=== PATIENT | female | born 1945 | race Caucasian/White ===

== ENCOUNTER 2016-05-28 00:18 | Emergency (ER) | payer OTHER ==
[~2016-05-28] VITALS: Ht 154.9 cm; Wt 72.6 kg
[~2016-05-28 00:18] MED LIST: LEVO88TA5 PO; LISI10TA5 PO; LOVA20TA2 PO; SULF-261 PO; THYROID
[2016-05-28 00:35] VITALS: BP 151/85; PULSE 75; RESP 17; TEMP 98.2; O2SAT 97
[2016-05-28] MEDS ORDERED: NS 500 ML IV SCH (01:44)
[2016-05-28 02:48] LABS: BASOPHILS % (AUTO) 0.5 % (0.0-2.0); EOSINOPHILS # (AUTO) 0.2 K/uL (0.0-0.4); EOSINOPHILS % (AUTO) 2.2 % (0.0-4.0); HEMATOCRIT 40.4 % (36-48); HEMOGLOBIN 13.4 g/dL (12.0-16.0); LYMPHOCYTES # (AUTO) 1.7 K/uL (1.0-5.5); MEAN CORPUSCULAR HEMOGLOBIN 32 pg (27-31); MEAN CORPUSCULAR HGB CONC 33 % (32-36); MEAN CORPUSCULAR VOLUME 96 fL (79.0-98.0); MONOCYTES # (AUTO) 0.5 K/uL (0.0-1.0); MONOCYTES % (AUTO) 5.4 % (1.7-9.3); NEUTROPHILS # (AUTO) 6.7 K/uL (1.8-7.7); NEUTROPHILS % (AUTO) 72.9 % (40.0-70.0); PLATELET COUNT (AUTO) 264 K/uL (130-430); RED CELL DISTRIBUTION WIDTH 13.1 % (9.0-15.0); WHITE BLOOD COUNT (AUTO) 9.1 K/uL (4.8-10.8)
[2016-05-28 02:57] LABS: CALCIUM 9.5 mg/dL (8.4-11.0); CREATININE 0.81 mg/dL (0.55-1.30); POTASSIUM 3.6 mmol/L (3.5-5.1)
[2016-05-28 03:02] LABS: ALBUMIN 3.9 g/dL (3.4-4.8); TOTAL BILIRUBIN 0.3 mg/dL (0.0-1.0); TOTAL PROTEIN, SERUM 7.2 g/dL (6.4-8.3)
[2016-05-28 03:05] LABS: PROTHROMBIN TIME 10.4 SECS (9.5-12.5)
[2016-05-28] MEDS ORDERED: traMADol HCL HCL 50 MG TABLET (ULTRAM) PO ONE (04:30)
[2016-05-28 04:35] VITALS: BP 147/82; PULSE 74; RESP 18; TEMP 98.2; O2SAT 97
== END 2016-05-28 04:35 | disposition home or self-care (01) ==
LOC: SED 00:18
DX: K52.9 Noninfective gastroenteritis and colitis, unspecified (principal); K21.9 Gastro-esophageal reflux disease without esophagitis; I10 Essential (primary) hypertension; E78.00 Pure hypercholesterolemia, unspecified; Z86.79 Personal history of other diseases of the circulatory system
CPT/HCPCS: 36415; 80053; 85025; 85610-TC; 85730-TC; 99285

== ENCOUNTER 2016-08-28 07:32 | Emergency (ER) | payer OTHER ==
[~2016-08-28] VITALS: Ht 157.5 cm; Wt 63.5 kg
[~2016-08-28 07:32] MED LIST changes: -THYROID
[2016-08-28 07:49] VITALS: BP_SYST 167
[2016-08-28] MEDS: DEXAMETHASONE SOD PHOSPHATE 10 MG/ML VIAL IM ONE (09:20)
[2016-08-28] MEDS: KETOROLAC TROMETHAMINE 60 MG/2 ML VIAL IM ONE (09:20)
[2016-08-28 09:45] VITALS: BP_SYST 138
== END 2016-08-28 09:45 | disposition home or self-care (01) ==
LOC: SED 07:32
DX: H69.80 Other specified disorders of Eustachian tube, unspecified ear (principal); L30.9 Dermatitis, unspecified; I10 Essential (primary) hypertension; K21.9 Gastro-esophageal reflux disease without esophagitis; E78.00 Pure hypercholesterolemia, unspecified; Z86.79 Personal history of other diseases of the circulatory system
CPT/HCPCS: 96372; 99284; J1100; J1885

== ENCOUNTER 2017-07-27 01:06 | Emergency (ER) | payer OTHER ==
[~2017-07-27] VITALS: Ht 154.9 cm; Wt 63.5 kg
[2017-07-27 01:10] VITALS: BP_SYST 164
[2017-07-27] MEDS ORDERED: ASPIRIN 81 MG TAB.CHEW PO ONE (01:30)
[2017-07-27 01:42] LABS: BASOPHILS % (AUTO) 0.6 % (0.0-2.0); EOSINOPHILS # (AUTO) 0.2 K/uL (0.0-0.4); EOSINOPHILS % (AUTO) 3.3 % (0.0-4.0); HEMATOCRIT 39.8 % (36-48); HEMOGLOBIN 13.5 g/dL (12.0-16.0); LYMPHOCYTES % (AUTO) 43.3 % (20.5-51.5); MEAN CORPUSCULAR HEMOGLOBIN 33 pg (27-31); MEAN CORPUSCULAR HGB CONC 34 % (32-36); MEAN CORPUSCULAR VOLUME 96 fL (79.0-98.0); MONOCYTES # (AUTO) 0.5 K/uL (0.0-1.0); MONOCYTES % (AUTO) 8.2 % (1.7-9.3); NEUTROPHILS # (AUTO) 2.9 K/uL (1.8-7.7); NEUTROPHILS % (AUTO) 44.6 % (40.0-70.0); PLATELET COUNT (AUTO) 297 K/uL (130-430); RED BLOOD CELL COUNT(AUTO) 4.15 MIL/uL (4.2-6.2); RED CELL DISTRIBUTION WIDTH 13.3 % (9.0-15.0); WHITE BLOOD COUNT (AUTO) 6.6 K/uL (4.8-10.8)
[2017-07-27 01:48] LABS: ANION GAP 12 (5-15); CALCIUM 9.7 mg/dL (8.4-11.0); CHLORIDE 102 mmol/L (98-107); CREATININE 0.76 mg/dL (0.55-1.30); GLUCOSE 133 mg/dL (70-99); POTASSIUM 3.4 mmol/L (3.5-5.1); SODIUM SERUM 140 mmol/L (136-145); UREA NITROGEN, BLOOD 15 mg/dL (8-21)
[2017-07-27 01:52] LABS: PROTHROMBIN TIME 9.7 SECS (9.5-12.5)
[2017-07-27 02:03] LABS: ALANINE AMINOTRANSFERASE 48 U/L (12-78); ALBUMIN 3.8 g/dL (3.4-4.8); ASPARTATE AMINOTRANSFERASE 24 U/L (10-37); FREE T4 (FREE THYROXINE) 0.9 ng/dl (0.8-1.5); THYROID STIMULATING HORMONE 8.43 uIu/mL (0.36-3.74); TOTAL BILIRUBIN 0.3 mg/dL (0.0-1.0)
[2017-07-27 02:17] LABS: TRIGLYCERIDES 168 mg/dL (30-150)
[2017-07-27 02:18] LABS: CHOLESTEROL 218 mg/dL (<200); HDL CHOLESTEROL 42 mg/dL (>55); LDL CHOLESTEROL 161 mg/dL (<100)
[2017-07-27 04:20] VITALS: BP_SYST 136
== END 2017-07-27 04:20 | disposition home or self-care (01) ==
LOC: SED 01:06
DX: R00.2 Palpitations (principal); I10 Essential (primary) hypertension; E78.5 Hyperlipidemia, unspecified; E78.00 Pure hypercholesterolemia, unspecified; K21.9 Gastro-esophageal reflux disease without esophagitis; Z90.49 Acquired absence of other specified parts of digestive tract; Z90.710 Acquired absence of both cervix and uterus; Z86.79 Personal history of other diseases of the circulatory system
CPT/HCPCS: 36415; 71045; 71250-TC; 80053; 80061; 82550-TC; 83880; 84439; 84443-TC; 84484; 85025; 85610-TC; 85730-TC; 93005; 99285

== ENCOUNTER 2018-06-18 04:33 | Emergency (ER) | payer OTHER ==
[~2018-06-18] VITALS: Ht 152.4 cm; Wt 63.5 kg
[2018-06-18 05:05] VITALS: BP_SYST 148
[2018-06-18] MEDS ORDERED: METO25TA6 PO (05:17)
[2018-06-18] MEDS ORDERED: OMEP20CA10 PO (05:18)
[2018-06-18] MEDS ORDERED: SIMV20TA2 PO (05:18)
[2018-06-18] MEDS ORDERED: HYDR25TA4 PO (05:19)
[2018-06-18] MEDS ORDERED: CHOL500051 PO (05:20)
[2018-06-18] MEDS ORDERED: FEXO1TAB8 PO (05:20)
[2018-06-18] MEDS ORDERED: FLUT16SP16 NS (05:21)
[2018-06-18] MEDS ORDERED: MONT10TA25 PO (05:22)
[2018-06-18] MEDS ORDERED: KETO5DRO39 OP (05:23)
[2018-06-18] MEDS ORDERED: NACL 0.9% 1,000 ML IV ONE (06:00)
[2018-06-18 07:00] LABS: BILIRUBIN,URINE NEGATIVE (NEGATIVE); BLOOD, URINE 1+ (NEGATIVE); CLARITY/URINE CLEAR (CLEAR); COLOR,URINE YELLOW (YELLOW); GLUCOSE,URINE NEGATIVE (NEGATIVE); KETONES,URINE NEGATIVE (NEGATIVE); LEUKOCYTE ESTERASE ,URINE NEGATIVE (NEGATIVE); NITRITE, URINE NEGATIVE (NEGATIVE); PH,URINE 5.5 (5.0-8.0); PROTEIN URINE NEGATIVE (NEGATIVE); UROBILINOGEN,URINE 0.2 (0.2-1.0)
[2018-06-18 07:12] LABS: HEMATOCRIT 41.7 % (36-48); HEMOGLOBIN 14.2 g/dL (12.0-16.0); MEAN CORPUSCULAR HEMOGLOBIN 33 pg (27-31); MEAN CORPUSCULAR HGB CONC 34 % (32-36); MEAN CORPUSCULAR VOLUME 96 fL (79.0-98.0); NEUTROPHILS % (AUTO) 65.1 % (40.0-70.0); PLATELET COUNT (AUTO) 287 K/uL (130-430); RED BLOOD CELL COUNT(AUTO) 4.36 MIL/uL (4.2-6.2); RED CELL DISTRIBUTION WIDTH 12.9 % (9.0-15.0)
[2018-06-18 07:13] LABS: BASOPHILS % (AUTO) 0.5 % (0.0-2.0); EOSINOPHILS # (AUTO) 0.1 K/uL (0.0-0.4); EOSINOPHILS % (AUTO) 1.5 % (0.0-4.0); LYMPHOCYTES # (AUTO) 1.8 K/uL (1.0-5.5); LYMPHOCYTES % (AUTO) 25.8 % (20.5-51.5); MONOCYTES # (AUTO) 0.5 K/uL (0.0-1.0); MONOCYTES % (AUTO) 7.1 % (1.7-9.3); NEUTROPHILS # (AUTO) 4.6 K/uL (1.8-7.7)
[2018-06-18 07:16] LABS: INR 0.9 (0.8-1.2); PROTHROMBIN TIME 9.5 SECS (9.5-12.5)
[2018-06-18] MEDS ORDERED: MECLIZINE HCL 25 MG TABLET (ANITVERT) PO ONE (07:30)
[2018-06-18 07:31] LABS: ANION GAP 8 (5-15); CALCIUM 9.5 mg/dL (8.4-11.0); CHLORIDE 101 mmol/L (98-107); CREATININE 0.79 mg/dL (0.55-1.30); GLUCOSE 117 mg/dL (70-99); POTASSIUM 3.6 mmol/L (3.5-5.1); SODIUM SERUM 136 mmol/L (136-145); UREA NITROGEN, BLOOD 18 mg/dL (8-21)
[2018-06-18 07:38] LABS: ALANINE AMINOTRANSFERASE 40 U/L (12-78); ALBUMIN 3.8 g/dL (3.4-4.8); ASPARTATE AMINOTRANSFERASE 22 U/L (10-37); TOTAL BILIRUBIN 0.4 mg/dL (0.0-1.0)
[2018-06-18 08:34] LABS: BACTERIA,URINE FEW /HPF (None Seen); MUCUS,URINE None Seen /LPF (None Seen); WBC,URINE 0-3 /HPF (0-3); YEAST,URINE None Seen /HPF (None Seen)
[2018-06-18 09:08] VITALS: BP_SYST 136
== END 2018-06-18 09:08 | disposition home or self-care (01) ==
LOC: SED 04:33
DX: R51 Headache (principal); K21.9 Gastro-esophageal reflux disease without esophagitis; I10 Essential (primary) hypertension; E78.00 Pure hypercholesterolemia, unspecified; Z86.79 Personal history of other diseases of the circulatory system; Z90.710 Acquired absence of both cervix and uterus; Z79.899 Other long term (current) drug therapy
CPT/HCPCS: 36415; 70450; 71045; 80053; 84484; 81000; 85025; 85610; 93005; 96360; 99284; J7030; J8597

== ENCOUNTER 2018-10-08 06:23 | Emergency (ER) | payer OTHER ==
[~2018-10-08] VITALS: Ht 157.5 cm; Wt 63.5 kg
[~2018-10-08 06:23] MED LIST changes: +CHOL500051 PO; +FEXO1TAB8 PO; +FLUT16SP16 NS; +HYDR25TA4 PO; +KETO5DRO39 OP; -LISI10TA5 PO; -LOVA20TA2 PO; +METO25TA6 PO; +MONT10TA25 PO; +OMEP20CA10 PO; +SIMV20TA2 PO; -SULF-261 PO
[2018-10-08 06:28] VITALS: BP_SYST 141
--- NOTE | 2018-10-08 06:37 | NUR ---
Pt states that upon awakening at 0500 this AM she felt dizzy and room began to spin, lasting about 3 minutes. Pt assisted herself to her bed and laid down. Pt states that she got scared so she came to ER. Pt AAOx4 with c/o frontal H/A, denies LOC or falling or head injury, no focal neurodeficits, no N/V. Pt denies dizziness or spinning of room at this time. Pt states that she checked her B/P at home and SBP was 240, upon recheck SBP was 184. Upon arrival to ER B/P was 141/85. Pt denies c/o C/P or SOB.
--- NOTE | 2018-10-08 06:37 | NUR ---
Pt placed to ER bed 04, to gown. Report given to STEPHANIE Obrien.
--- NOTE | 2018-10-08 06:45 | NUR ---
Dr. Belcher at bedside to assess pt.
--- NOTE | 2018-10-08 07:09 | NUR ---
# 22 gauge angiocath placed to LEFT AC. Use of asceptic technique. Opsite placed over site. Blood return noted. Blood for lab drawn from site. Flushed with 10 cc of normal saline. No evidence of infiltration noted. Patient tolerated well.
[2018-10-08 07:10] LABS: BASOPHILS % (AUTO) 0.7 % (0.0-2.0); EOSINOPHILS # (AUTO) 0.2 K/uL (0.0-0.4); EOSINOPHILS % (AUTO) 3.2 % (0.0-4.0); HEMATOCRIT 41.1 % (36-48); HEMOGLOBIN 13.7 g/dL (12.0-16.0); LYMPHOCYTES # (AUTO) 1.9 K/uL (1.0-5.5); MEAN CORPUSCULAR HEMOGLOBIN 32 pg (27-31); MEAN CORPUSCULAR HGB CONC 33 % (32-36); MEAN CORPUSCULAR VOLUME 97 fL (79.0-98.0); MONOCYTES # (AUTO) 0.5 K/uL (0.0-1.0); MONOCYTES % (AUTO) 8.2 % (1.7-9.3); NEUTROPHILS # (AUTO) 3.9 K/uL (1.8-7.7); NEUTROPHILS % (AUTO) 58.9 % (40.0-70.0); PLATELET COUNT (AUTO) 286 K/uL (130-430); RED BLOOD CELL COUNT(AUTO) 4.26 MIL/uL (4.2-6.2); RED CELL DISTRIBUTION WIDTH 13.6 % (9.0-15.0); WHITE BLOOD COUNT (AUTO) 6.6 K/uL (4.8-10.8)
[2018-10-08 07:24] LABS: ANION GAP 10 (5-15); CALCIUM 10.1 mg/dL (8.4-11.0); CHLORIDE 101 mmol/L (98-107); CREATININE 0.77 mg/dL (0.55-1.30); GLUCOSE 136 mg/dL (70-99); POTASSIUM 3.5 mmol/L (3.5-5.1); SODIUM SERUM 136 mmol/L (136-145); UREA NITROGEN, BLOOD 17 mg/dL (8-21)
[2018-10-08 07:26] LABS: INR 0.9 (0.8-1.2); PROTHROMBIN TIME 9.3 SECS (9.5-12.5)
[2018-10-08 07:28] LABS: ALANINE AMINOTRANSFERASE 43 U/L (12-78); ALBUMIN 3.9 g/dL (3.4-4.8); ASPARTATE AMINOTRANSFERASE 21 U/L (10-37); TOTAL BILIRUBIN 0.4 mg/dL (0.0-1.0)
[2018-10-08 07:34] LABS: BILIRUBIN,URINE NEGATIVE (NEGATIVE); BLOOD, URINE 2+ (NEGATIVE); CLARITY/URINE CLEAR (CLEAR); COLOR,URINE YELLOW (YELLOW); GLUCOSE,URINE NEGATIVE (NEGATIVE); KETONES,URINE NEGATIVE (NEGATIVE); LEUKOCYTE ESTERASE ,URINE NEGATIVE (NEGATIVE); NITRITE, URINE NEGATIVE (NEGATIVE); PROTEIN URINE NEGATIVE (NEGATIVE); UROBILINOGEN,URINE 0.2 (0.2-1.0)
[2018-10-08 07:47] LABS: BACTERIA,URINE FEW /HPF (None Seen); WBC,URINE 0-3 /HPF (0-3)
--- NOTE | 2018-10-08 08:02 | NUR ---
Patient transported to radiology via gurney, accompanied by rad staff.
--- NOTE | 2018-10-08 08:03 | NUR ---
Returned from radiology, back to [facility].
--- NOTE | 2018-10-08 09:10 | NUR ---
Patient given written and verbal discharge instructions and verbalizes understanding. ER MD discussed with patient the results and treatment provided. Patient in stable condition. ID arm band removed. IV catheter removed intact and dressing applied, no active bleeding. No Rx given. Patient educated on pain management and to follow up with PMD. Pain Scale 3. Opportunity for questions provided and answered. Medication side effect fact sheet provided.
[2018-10-08] MEDS ORDERED: ACETAMINOPHEN 500 MG TABLET ONE (09:18)
[2018-10-08 09:31] VITALS: BP_SYST 113
== END 2018-10-08 09:31 | disposition home or self-care (01) ==
LOC: SED 06:23
DX: R42 Dizziness and giddiness (principal); I10 Essential (primary) hypertension; K21.9 Gastro-esophageal reflux disease without esophagitis; E78.00 Pure hypercholesterolemia, unspecified; Z86.79 Personal history of other diseases of the circulatory system; Z79.899 Other long term (current) drug therapy
CPT/HCPCS: 36415; 70450-TC; 71045; 80053; 81000-TC; 84484; 85025; 85610-TC; 85730-TC; 93005; 99284

== ENCOUNTER 2018-11-03 22:46 | Emergency (ER) | payer OTHER ==
[~2018-11-03] VITALS: Ht 157.5 cm; Wt 63.5 kg
[2018-11-03 22:59] VITALS: BP_SYST 139
--- NOTE | 2018-11-03 23:03 | NUR ---
Patient triaged and placed in waiting room. VSS and patient appears in no acute distress at this time. Accompanied by self, awaiting available bed, and MD notified of need for MSE.
--- NOTE | 2018-11-03 23:20 | NUR ---
Patient arrived from home with complaints of painful urination and blood in the urine. Denies any fever, n/v, chills or sob. Pain rated at 10/10 when urinating. Patient is ambulatory with a steady gait.
--- NOTE | 2018-11-03 23:21 | NUR ---
Patient to ER bed 4 to gown for evaluation. Side rails up. Report given to Micah BROWN.
[2018-11-04 00:41] LABS: BILIRUBIN,URINE NEGATIVE (NEGATIVE); BLOOD, URINE 3+ (NEGATIVE); CLARITY/URINE CLEAR (CLEAR); COLOR,URINE YELLOW (YELLOW); GLUCOSE,URINE NEGATIVE (NEGATIVE); KETONES,URINE NEGATIVE (NEGATIVE); LEUKOCYTE ESTERASE ,URINE 2+ (NEGATIVE); NITRITE, URINE NEGATIVE (NEGATIVE); PROTEIN URINE NEGATIVE (NEGATIVE); UROBILINOGEN,URINE 0.2 (0.2-1.0)
[2018-11-04 00:47] LABS: BACTERIA,URINE MODERATE /HPF (None Seen); RBC,URINE 20-50 /HPF (0-3); WBC,URINE >100 /HPF (0-3)
[2018-11-04] MEDS ORDERED: LEVOFLOXACIN 500 MG TABLET PO ONE (01:00)
[2018-11-04] MEDS ORDERED: PHENAZOPYRIDINE HCL 100 MG TABLET PO ONE (01:00)
--- NOTE | 2018-11-04 01:06 | NUR ---
Medication was given. Pt tolerated well. No adverse reaction, will continue to monitor.
[2018-11-04 01:28] VITALS: BP_SYST 133
--- NOTE | 2018-11-04 01:47 | NUR ---
Patient given written and verbal discharge instructions and verbalizes understanding. ER MD discussed with patient the results and treatment provided. Patient in stable condition. ID arm band removed. Rx of Pyridium and Levaquin given. Patient educated on pain management and to follow up with PMD. Pain Scale 0. Opportunity for questions provided and answered. Medication side effect fact sheet provided.
== END 2018-11-04 01:28 | disposition home or self-care (01) ==
LOC: SED 22:46
DX: N39.0 Urinary tract infection, site not specified (principal); K21.9 Gastro-esophageal reflux disease without esophagitis; I10 Essential (primary) hypertension; M79.7 Fibromyalgia; E78.00 Pure hypercholesterolemia, unspecified; Z86.79 Personal history of other diseases of the circulatory system; Z79.899 Other long term (current) drug therapy
CPT/HCPCS: 81000-TC; 87086; 99283

== ENCOUNTER 2019-04-29 01:30 | Emergency (ER) | payer OTHER ==
[~2019-04-29] VITALS: Ht 157.5 cm; Wt 63.0 kg
[~2019-04-29 01:30] MED LIST changes: -OMEP20CA10 PO; +OMEP20CA11 PO
[2019-04-29 01:50] VITALS: BP_SYST 148
--- NOTE | 2019-04-29 01:50 | NUR ---
Patient to ER bed 8 to gown for evaluation. Side rails up. Report given to STEPHANIE Lyons.
--- NOTE | 2019-04-29 01:55 | NUR ---
Patient complains of cough, fever, and chills since April 21. Pt states that she had recently came back from vacation from [place] and was seen and prescribed medications. Pt is currently taking Naprosyn, Tamiflu, and Loratidine. Per pt, cough intensifies when laying down. Afebrile in ED. Pt states she feels congested in the head especially after the plane ride and ears are muffled. No other injuries/complaints per patient or noted.
--- NOTE | 2019-04-29 02:00 | NUR ---
ER Dr. Gibbs at bedside examining patient.
--- NOTE | 2019-04-29 02:00 | NUR ---
Patient came into the ER with complaint of cough. Patient has cold like symptoms but afebrile. Patient O2 at 97%. Patient not presenting any signs of acute distress.
[2019-04-29] MEDS ORDERED: PREDNISONE 20 MG TABLET PO ONE (02:15)
--- NOTE | 2019-04-29 03:15 | NUR ---
Patient given written and verbal discharge instructions and verbalizes understanding. ER MD discussed with patient the results and treatment provided. Patient in stable condition. ID arm band removed. Rx of Cipro, Prednisone, Promethazine given. Patient educated on pain management and to follow up with PMD. Pain Scale 0/10. Opportunity for questions provided and answered. Medication side effect fact sheet provided.
[2019-04-29 03:18] VITALS: BP_SYST 148
== END 2019-04-29 03:18 | disposition home or self-care (01) ==
LOC: SED 01:30
DX: N39.0 Urinary tract infection, site not specified (principal); J20.9 Acute bronchitis, unspecified; I10 Essential (primary) hypertension; E07.9 Disorder of thyroid, unspecified; Z79.899 Other long term (current) drug therapy
CPT/HCPCS: 71045; 81002; 99283; J7512

== ENCOUNTER 2019-07-21 02:16 | Emergency (ER) | payer OTHER, SELFPAY ==
[~2019-07-21] VITALS: Ht 157.5 cm; Wt 63.5 kg
[2019-07-21 02:28] VITALS: BP_SYST 168
--- NOTE | 2019-07-21 02:36 | NUR ---
Patient triaged and placed in waiting room. VSS and patient appears in no acute distress at this time. Accompanied by self, awaiting available bed, and MD notified of need for MSE.
--- NOTE | 2019-07-21 02:42 | NUR ---
Placed in room 06 . Placed on panel monitor, blood pressure machine and pulse oximeter. To gown for exam. Side rails up. Report given to Joaquin BROWN.
--- NOTE | 2019-07-21 02:48 | NUR ---
ER Dr. Gibbs at bedside examining patient.
--- NOTE | 2019-07-21 02:59 | NUR ---
Pt BIB family to ED C/O one-week history of cough congestion and intermittent episodes of dizzy spells. Patient also complained of ear fullness sensation. Currently taken medications that were phoned in by her primary doctor including meclizine and antibiotics and an antitussive medication. [place] And has been observing self-isolation with only intermittent interaction with her senior inhabitants. Patient states she has had no external visitors. No other complaints noted VSS no s/s of acute distress Resting on gurCaptora rails up
[2019-07-21] MEDS ORDERED: NACL 0.9% 1,000 ML IV ONE ×2 (03:00→04:00)
--- NOTE | 2019-07-21 03:23 | NUR ---
x-ray at bedside.
[2019-07-21 03:24] LABS: BASOPHILS # (AUTO) 0.1 K/uL (0.0-0.2); BASOPHILS % (AUTO) 1.2 % (0.0-2.0); EOSINOPHILS # (AUTO) 0.2 K/uL (0.0-0.4); EOSINOPHILS % (AUTO) 2.6 % (0.0-4.0); HEMATOCRIT 40.3 % (36-48); HEMOGLOBIN 13.5 g/dL (12.0-16.0); LYMPHOCYTES # (AUTO) 2.7 K/uL (1.0-5.5); LYMPHOCYTES % (AUTO) 35.9 % (20.5-51.5); MEAN CORPUSCULAR HEMOGLOBIN 32 pg (27-31); MEAN CORPUSCULAR HGB CONC 33 % (32-36); MEAN CORPUSCULAR VOLUME 96 fL (79.0-98.0); MONOCYTES # (AUTO) 0.5 K/uL (0.0-1.0); MONOCYTES % (AUTO) 6.5 % (1.7-9.3); NEUTROPHILS % (AUTO) 53.8 % (40.0-70.0); PLATELET COUNT (AUTO) 295 K/uL (130-430); RED BLOOD CELL COUNT(AUTO) 4.18 MIL/uL (4.2-6.2); RED CELL DISTRIBUTION WIDTH 14.5 % (9.0-15.0); WHITE BLOOD COUNT (AUTO) 7.5 K/uL (4.8-10.8)
--- NOTE | 2019-07-21 03:30 | NUR ---
Note undone in EDM - 07/21/19 at 0335 by [email or web address] Patient given written and verbal discharge instructions and verbalizes understanding. ER discussed with patient the results and treatment provided. Patient in stable condition. ID arm band removed. IV catheter removed intact and dressing applied, no active bleeding. Rx of Zofran and Motrin given. Patient educated on pain management and to follow up with PMD. Pain Scale 0/10 Opportunity for questions provided and answered. Medication side effect fact sheet provided.
[2019-07-21 03:34] LABS: ANION GAP 13 (5-15); CALCIUM 9.6 mg/dL (8.4-11.0); CHLORIDE 100 mmol/L (98-107); CREATININE 0.77 mg/dL (0.55-1.30); GLUCOSE 125 mg/dL (70-99); POTASSIUM 4.2 mmol/L (3.5-5.1); SODIUM SERUM 138 mmol/L (136-145); UREA NITROGEN, BLOOD 12 mg/dL (8-21)
[2019-07-21 03:40] LABS: ALANINE AMINOTRANSFERASE 42 U/L (12-78); ALBUMIN 3.5 g/dL (3.4-4.8); ASPARTATE AMINOTRANSFERASE 39 U/L (10-37); TOTAL BILIRUBIN 0.5 mg/dL (0.0-1.0)
--- NOTE | 2019-07-21 05:00 | NUR ---
Flu swab sent to lab for processing and 2nd Lactic lab sent as well
--- NOTE | 2019-07-21 06:00 | NUR ---
Obtained Bilat Nasal swab sample per COVID19 protocol, swab and red top container provided by lab. Well tolerated
[2019-07-21 06:32] VITALS: BP_SYST 138
--- NOTE | 2019-07-21 06:32 | NUR ---
Patient given written and verbal discharge instructions and verbalizes understanding. ER MD discussed with patient the results and treatment provided. Patient in stable condition. ID arm band removed. Rx of Azithromycin, Promethazine DM, Prednisone given. Patient educated on pain management and to follow up with PMD. Pain Scale 2/10. Opportunity for questions provided and answered. Medication side effect fact sheet provided.
== END 2019-07-21 06:32 | disposition home or self-care (01) ==
LOC: SED 02:16
DX: J40 Bronchitis, not specified as acute or chronic (principal); N28.9 Disorder of kidney and ureter, unspecified; I10 Essential (primary) hypertension; E78.00 Pure hypercholesterolemia, unspecified; K21.9 Gastro-esophageal reflux disease without esophagitis; E07.9 Disorder of thyroid, unspecified; R42 Dizziness and giddiness; Z95.0 Presence of cardiac pacemaker; Z86.73 Personal history of transient ischemic attack (TIA), and cerebral infarction without residual deficits; Z79.899 Other long term (current) drug therapy; Z20.828 Contact with and (suspected) exposure to other viral communicable diseases
CPT/HCPCS: 36415; 71045; 80053; 81002; 83605; 84484; 85025; 86710; 87040; 93005; 96360; 96361; 99285; J7030; U0002

== ENCOUNTER 2020-09-26 00:34 | Emergency (ER) | payer OTHER, SELFPAY ==
[~2020-09-26] VITALS: Ht 154.9 cm; Wt 63.5 kg
[~2020-09-26 00:34] MED LIST changes: -MONT10TA25 PO; +MONT10TA33 PO; -OMEP20CA11 PO; +OMEP20CA15 PO
[2020-09-26 00:50] VITALS: BP_SYST 128
[2020-09-26 00:59] LABS: BILIRUBIN,URINE NEGATIVE (NEGATIVE); BLOOD, URINE 3+ (NEGATIVE); CLARITY/URINE CLEAR (CLEAR); COLOR,URINE YELLOW (YELLOW); GLUCOSE,URINE NEGATIVE (NEGATIVE); KETONES,URINE NEGATIVE (NEGATIVE); LEUKOCYTE ESTERASE ,URINE 2+ (NEGATIVE); NITRITE, URINE POSITIVE (NEGATIVE); PROTEIN URINE NEGATIVE (NEGATIVE); UROBILINOGEN,URINE 0.2 (0.2-1.0)
[2020-09-26 01:07] LABS: BACTERIA,URINE FEW /HPF (None Seen); WBC,URINE 20-50 /HPF (0-3)
[2020-09-26] MEDS ORDERED: cefTRIAXone 1 GM in LIDOCAINE 1%, 20 ML MDV 2.1 ML IM ONE (02:45)
[2020-09-26] MEDS ORDERED: PHENAZOPYRIDINE HCL 100 MG TABLET PO ONE (02:45)
[2020-09-26] MEDS ORDERED: CEPH250C PO (03:07)
[2020-09-26] MEDS ORDERED: PHEN-890 PO (03:08)
[2020-09-26 03:16] VITALS: BP_SYST 128
== END 2020-09-26 03:16 | disposition home or self-care (01) ==
LOC: SED 00:34
DX: N39.0 Urinary tract infection, site not specified (principal); I10 Essential (primary) hypertension; K21.9 Gastro-esophageal reflux disease without esophagitis; Z79.899 Other long term (current) drug therapy
CPT/HCPCS: 81000; 87086; 96372; 99283; J0696; J2001

== ENCOUNTER 2021-10-07 05:08 | Emergency (ER) | payer OTHER ==
[~2021-10-07] VITALS: Ht 157.5 cm; Wt 63.5 kg
[~2021-10-07 05:08] MED LIST changes: +CEPH250C PO; +MONT-40 PO; -MONT10TA33 PO; +PHEN-890 PO
[2021-10-07 05:15] VITALS: BP_SYST 116
--- NOTE | 2021-10-07 05:17 | NUR ---
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 PER PT SHE TOOK 25 MG OF BENEDRYL WITH NO RELIEF. PT STATES SHE STARTED TAKING A NEW MEDICTAION WHICH MAY HAVE RESULTED IN THE ALLERGIC REACTION. PT NOTED TO HAVE REDNESS AND RAISED SKIN IN VARIOUS AREAS OF HER BODY SUCH FACE, CHEST, ARMS AND STOMACH. PT DENIES ANY SOB OR PAIN. PT PENDING MD EVALUATION
--- NOTE | 2021-10-07 06:10 | NUR ---
ER at bedside examining patient.
[2021-10-07] MEDS ORDERED: EPINEPHRINE HCL/PF 1 MG/ML AMP IM ONE (06:15)
[2021-10-07] MEDS ORDERED: FAMOTIDINE 20 MG TABLET PO ONE (06:15)
[2021-10-07] MEDS ORDERED: predniSONE 20 MG TABLET PO ONE (06:15)
[2021-10-07] MEDS ORDERED: EPIN0.3P3 IM (07:17)
--- NOTE | 2021-10-07 07:38 | NUR ---
Patient given written and verbal discharge instructions and verbalizes understanding. ER MD discussed with patient the results and treatment provided. Patient in stable condition. ID arm band removed. Rx of epinephrine given. Patient educated on pain management and to follow up with PMD. Pain Scale . Opportunity for questions provided and answered. Medication side effect fact sheet provided.
[2021-10-07 07:47] VITALS: BP_SYST 122
== END 2021-10-07 07:38 | disposition home or self-care (01) ==
LOC: SED 05:08
DX: L23.9 Allergic contact dermatitis, unspecified cause (principal); I10 Essential (primary) hypertension; K21.9 Gastro-esophageal reflux disease without esophagitis; E78.00 Pure hypercholesterolemia, unspecified; M79.7 Fibromyalgia; Z79.899 Other long term (current) drug therapy
CPT/HCPCS: 96372; 99283; J0171; J7512

== ENCOUNTER 2021-10-09 03:30 | Emergency (ER) | payer OTHER ==
[~2021-10-09] VITALS: Ht 157.5 cm; Wt 63.5 kg
[~2021-10-09 03:30] MED LIST changes: +EPIN0.3P3 IM
[2021-10-09 04:30] VITALS: BP_SYST 126
--- NOTE | 2021-10-09 05:30 | NUR ---
Patient ambulatory to bed 7 for evaluation and treatment
--- NOTE | 2021-10-09 05:48 | NUR ---
Dr. Webb at bedside with patient for evaluation.
--- NOTE | 2021-10-09 05:48 | NUR ---
Pt comes from home with c/o skin rash on both arms. Risen bumps noted on both arms. Pt reports having the rash for 3 days and reports that it gets worse with itching. A&O x4, ambulatory, and follows simple commands. Safety precautions in place and connected to monitor.
[2021-10-09] MEDS ORDERED: FAMOTIDINE 20 MG TABLET PO ONE (06:00)
[2021-10-09] MEDS ORDERED: predniSONE 20 MG TABLET PO ONE (06:00)
[2021-10-09] MEDS ORDERED: predniSONE 20 MG TABLET ONE (06:06)
[2021-10-09] MEDS ORDERED: FAMO-132 PO (06:20)
[2021-10-09] MEDS ORDERED: CETI10CA20 PO (06:20)
[2021-10-09] MEDS ORDERED: PRED20TA PO (06:20)
[2021-10-09 06:35] VITALS: BP_SYST 118
--- NOTE | 2021-10-09 06:35 | NUR ---
Patient given written and verbal discharge instructions and verbalizes understanding. ER Dr. Webb discussed with patient the results and treatment provided. Patient in stable condition. ID arm band removed. Rx of cetirizine, pepcid, and prednisone given. Patient educated on pain management and to follow up with PMD. Pain Scale 0. Opportunity for questions provided and answered. Medication side effect fact sheet provided.
== END 2021-10-09 06:35 | disposition home or self-care (01) ==
LOC: SED 03:30
DX: L23.9 Allergic contact dermatitis, unspecified cause (principal); I10 Essential (primary) hypertension; K21.9 Gastro-esophageal reflux disease without esophagitis; Z79.899 Other long term (current) drug therapy
CPT/HCPCS: 99283; J7512

== ENCOUNTER 2021-12-14 00:08 | Emergency (ER) | payer OTHER ==
[~2021-12-14] VITALS: Ht 157.5 cm; Wt 63.5 kg
[~2021-12-14 00:08] MED LIST changes: +CETI10CA20 PO; +FAMO-132 PO; +PRED20TA PO; +SIMV-343 PO; -SIMV20TA2 PO
[2021-12-14 00:30] VITALS: BP_SYST 149
--- NOTE | 2021-12-14 00:30 | NUR ---
Patient to ER bed 08 to gown for evaluation. Side rails up.
--- NOTE | 2021-12-14 00:36 | NUR ---
PT CAME FROM HOME WITH C/O OF CONGESTION, SORE THROAT, RUNNY NOSE, AND WATSON FOR 3 DAYS. PT DENIES N/V AND CHEST PAIN. PT SPEAKING IN FULL SENTENCES, EVEN AND UNLABORED BREATHS, AND VSS.
--- NOTE | 2021-12-14 00:38 | NUR ---
ER at bedside examining patient.
--- NOTE | 2021-12-14 00:53 | NUR ---
PT C/O RUNNING NOSE, COUGH AND HEADACHE X 3 DAYS. PT AMBULATORY WITH STEADY GAIT. PT SPEAKING FULL SENTENCES. NO SIGNS OF DISTRESS AT THIS TIME PT ON TANK HOOP BENDER
--- NOTE | 2021-12-14 01:10 | NUR ---
COVID SWAB IN LAB
[2021-12-14] MEDS ORDERED: PHEDM120 PO (03:51)
[2021-12-14] MEDS ORDERED: FLUT16SP16 NS (03:51)
[2021-12-14] MEDS ORDERED: ACETAMINOPHEN 500 MG TABLET ONE (04:08)
[2021-12-14 04:12] VITALS: BP_SYST 116
--- NOTE | 2021-12-14 04:14 | NUR ---
PT STABLE AND CLEARED FOR DC BY PT ADVISED TO FOLLOW UP WITH PCP PT ADVISED TO RETURN TO THE ED IF S/S WORSEN PT VERBALIZED UNDERSTANDING OF DC TEACHINGS PT AMBULATORY WITH STEADY GAIT VSS NAD
[2021-12-14] MEDS ORDERED: ACETAMINOPHEN 500 MG TABLET PO ONE (04:15)
== END 2021-12-14 04:12 | disposition home or self-care (01) ==
LOC: SED 00:08
DX: J06.9 Acute upper respiratory infection, unspecified (principal); J02.9 Acute pharyngitis, unspecified; R05.9 Cough, unspecified; R09.81 Nasal congestion; I10 Essential (primary) hypertension; K21.9 Gastro-esophageal reflux disease without esophagitis; E78.00 Pure hypercholesterolemia, unspecified; Z79.899 Other long term (current) drug therapy; Z20.822 Contact with and (suspected) exposure to COVID-19
CPT/HCPCS: 36415; 71045; 99284

== ENCOUNTER 2022-06-03 11:06 | Emergency (ER) | payer OTHER ==
[~2022-06-03] VITALS: Ht 157.5 cm; Wt 63.5 kg
[~2022-06-03 11:06] MED LIST changes: +PHEDM120 PO
[2022-06-03 11:37] VITALS: BP_SYST 156
[2022-06-03] MEDS ORDERED: ACETAMINOPHEN 325 MG TABLET PO ONE (18:45)
[2022-06-03] MEDS ORDERED: IBUPROFEN 600 MG TABLET PO ONE (18:45)
--- NOTE | 2022-06-03 19:46 | NUR ---
Patient to [facility] for evaluation. Side rails up. Report given to AVERY BROWN(REG).
--- NOTE | 2022-06-03 19:48 | NUR ---
MD Chapman at bedside examining pt.
--- NOTE | 2022-06-03 19:50 | NUR ---
Pt medicated as ordered; tolerated well.
[2022-06-03 20:05] VITALS: BP_SYST 147
--- NOTE | 2022-06-03 20:05 | NUR ---
Patient given written and verbal discharge instructions and verbalizes understanding. ER MD Chapman discussed with patient the results and treatment provided. Patient in stable condition. ID arm band removed. Patient educated on pain management and to follow up with PMD. Opportunity for questions provided and answered. Medication side effect fact sheet provided.
== END 2022-06-03 20:05 | disposition home or self-care (01) ==
LOC: SED 11:06
DX: R51.9 Headache, unspecified (principal); H92.03 Otalgia, bilateral; E11.9 Type 2 diabetes mellitus without complications; K21.9 Gastro-esophageal reflux disease without esophagitis; I10 Essential (primary) hypertension; E78.00 Pure hypercholesterolemia, unspecified; Z79.899 Other long term (current) drug therapy
CPT/HCPCS: 70450-TC; 76376; 99284

== ENCOUNTER 2023-08-21 18:01 | Emergency (ER) | payer OTHER ==
[~2023-08-21] VITALS: Ht 154.9 cm; Wt 68.0 kg
[~2023-08-21 18:01] MED LIST changes: +KETO5DRO OP; -KETO5DRO39 OP
[2023-08-21 18:13] VITALS: BP_SYST 139; PULSE 62; RESP 18; TEMP 98.5; O2SAT 98
[2023-08-21] MEDS ORDERED: FLOEARD EACH EYE (19:10)
[2023-08-21] MEDS ORDERED: HYDR-3917 PO (19:10)
[2023-08-21] MEDS: HYDROcodone/ACETAMIN 5-325 MG TAB (NORCO/ VICODIN) PO ONE (19:48)
[2023-08-21 20:00] VITALS: BP_SYST 139; PULSE 62; RESP 18; TEMP 98.5; O2SAT 98
== END 2023-08-21 20:00 | disposition home or self-care (01) ==
LOC: SED 18:01
DX: T15.82XA Foreign body in other and multiple parts of external eye, left eye, initial encounter (principal); K21.9 Gastro-esophageal reflux disease without esophagitis; I10 Essential (primary) hypertension; E11.9 Type 2 diabetes mellitus without complications; Z98.42 Cataract extraction status, left eye; Z79.899 Other long term (current) drug therapy; W45.8XXA Other foreign body or object entering through skin, initial encounter; Y93.89 Activity, other specified; Y92.89 Other specified places as the place of occurrence of the external cause; Y99.8 Other external cause status
CPT/HCPCS: 99283; 96374; J1120

== ENCOUNTER 2023-10-14 06:16 | Observation (INO) | payer OTHER ==
[~2023-10-14] VITALS: Ht 157.5 cm; Wt 63.5 kg
[~2023-10-14 06:16] MED LIST changes: +FLOEARD EACH EYE; +HYDR-3917 PO
[2023-10-14 06:28] VITALS: BP_SYST 152; PULSE 81; RESP 16; TEMP 97.6; O2SAT 97
[2023-10-14 07:17] LABS: BASOPHILS # (AUTO) 0.1 K/uL (0.0-0.2); EOSINOPHILS # (AUTO) 0.3 K/uL (0.0-0.4); EOSINOPHILS % (AUTO) 3.8 % (0.0-4.0); HEMATOCRIT 40.3 % (36-48); HEMOGLOBIN 13.4 g/dL (12.0-16.0); LYMPHOCYTES # (AUTO) 2.3 K/uL (1.0-5.5); LYMPHOCYTES % (AUTO) 30.9 % (20.5-51.5); MEAN CORPUSCULAR HEMOGLOBIN 32 pg (27-31); MEAN CORPUSCULAR HGB CONC 33 % (32-36); MEAN CORPUSCULAR VOLUME 96 fL (79.0-98.0); MONOCYTES # (AUTO) 0.6 K/uL (0.0-1.0); MONOCYTES % (AUTO) 8.5 % (1.7-9.3); NEUTROPHILS # (AUTO) 4.1 K/uL (1.8-7.7); NEUTROPHILS % (AUTO) 55.8 % (40.0-70.0); PLATELET COUNT (AUTO) 261 K/uL (130-430); RED BLOOD CELL COUNT(AUTO) 4.19 MIL/uL (4.2-6.2); RED CELL DISTRIBUTION WIDTH 13.9 % (9.0-15.0); WHITE BLOOD COUNT (AUTO) 7.4 K/uL (4.8-10.8)
[2023-10-14 07:29] LABS: PROTHROMBIN TIME 10.2 SECS (9.5-12.5)
[2023-10-14 07:31] LABS: ALANINE AMINOTRANSFERASE 86 U/L (12-78); ALBUMIN 3.6 g/dL (3.4-4.8); ANION GAP 7 (5-15); ASPARTATE AMINOTRANSFERASE 41 U/L (10-37); CARBON DIOXIDE 26 mmol/L (23-29); CHLORIDE 105 mmol/L (98-107); CREATININE 0.81 mg/dL (0.55-1.30); GLUCOSE 136 mg/dL (74-106); POTASSIUM 3.8 mmol/L (3.5-5.1); SODIUM SERUM 138 mmol/L (136-145); TOTAL BILIRUBIN 0.4 mg/dL (0.0-1.0); TOTAL PROTEIN, SERUM 7.3 g/dL (6.4-8.3); UREA NITROGEN, BLOOD 9 mg/dL (8-21)
[2023-10-14] MEDS: METOCLOPRAMIDE HCL 10 MG/2 ML VIAL IVP ONE (07:31)
[2023-10-14] MEDS: MECLIZINE HCL 25 MG TABLET (ANITVERT) PO ONE (07:33)
[2023-10-14 07:34] LABS: BILIRUBIN,DIRECT 0.1 mg/dL (0.0-0.3); CREATINE KINASE, TOTAL 107 U/L (26-192)
[2023-10-14] MEDS: ASPIRIN 81 MG TABLET(ECOTRIN) PO ONE (08:21)
[2023-10-14] MEDS ORDERED: METO-306 PO (08:26)
[2023-10-14] MEDS ORDERED: HYDR-2923 PO (08:26)
[2023-10-14] MEDS ORDERED: PANT40TA45 PO (08:26)
[2023-10-14] MEDS ORDERED: LEVO75TA7 PO (08:26)
[2023-10-14] MEDS ORDERED: FURO20TA4 (08:26)
[2023-10-14] MEDS ORDERED: ATOR40TA68 (08:26)
[2023-10-14] MEDS ORDERED: ONDANSETRON HCL 4 MG/2 ML VIAL IVP PRN (10:30)
[2023-10-14] MEDS ORDERED: MORPHINE 2 MG/ML INJ. SYRINGE IVP PRN (10:30)
[2023-10-14] MEDS ORDERED: ACETAMINOPHEN 325 MG TABLET PO PRN ×2 (10:30→10:45)
[2023-10-14] MEDS ORDERED: ALBUTEROL SULFATE 0.083% 2.5 MG/3 ML VIAL.NEB INH PRN (10:30)
[2023-10-14] MEDS ORDERED: HYDROcodone/ACETAMIN 10-325 MG TAB PO PRN (10:30)
[2023-10-14] MEDS ORDERED: HYDROcodone/ACETAMIN 5-325 MG TAB (NORCO/ VICODIN) PO PRN (10:30)
[2023-10-14] MEDS: NACL 0.9% 1,000 ML IV ONE (10:54)
[2023-10-14 11:36] VITALS: BP_SYST 132; PULSE 56; RESP 16; TEMP 97.5; O2SAT 98
[2023-10-14 12:09] VITALS: BP_SYST 136; PULSE 61; O2SAT 98
[2023-10-14 16:20] VITALS: BP_SYST 134; PULSE 62; RESP 16; TEMP 99.1; O2SAT 98
[2023-10-14 17:31] LABS: BILIRUBIN,URINE NEGATIVE (NEGATIVE); CLARITY/URINE CLEAR (CLEAR); COLOR,URINE YELLOW (YELLOW); GLUCOSE,URINE NEGATIVE (NEGATIVE); KETONES,URINE NEGATIVE (NEGATIVE); LEUKOCYTE ESTERASE ,URINE NEGATIVE (NEGATIVE); NITRITE, URINE NEGATIVE (NEGATIVE); PROTEIN URINE NEGATIVE (NEGATIVE); UROBILINOGEN,URINE 0.2 (0.2-1.0)
[2023-10-14 17:32] LABS: BLOOD, URINE TRACE (NEGATIVE)
[2023-10-14 17:37] LABS: BACTERIA,URINE RARE /HPF (None Seen); MUCUS,URINE None Seen /LPF (None Seen); RBC,URINE 0-3 /HPF (0-3); WBC,URINE 0-3 /HPF (0-3)
[2023-10-14 20:00] VITALS: BP_SYST 123; PULSE 58; RESP 20; TEMP 97.2; O2SAT 96; O2SAT 97
[2023-10-14] MEDS: MECLIZINE HCL 25 MG TABLET (ANITVERT) PO SCH (21:46)
[2023-10-15 00:11] VITALS: RESP 20; TEMP 97
[2023-10-15 06:40] LABS: BASOPHILS % (AUTO) 0.7 % (0.0-2.0); EOSINOPHILS # (AUTO) 0.3 K/uL (0.0-0.4); EOSINOPHILS % (AUTO) 4.2 % (0.0-4.0); HEMATOCRIT 40.3 % (36-48); HEMOGLOBIN 13.7 g/dL (12.0-16.0); LYMPHOCYTES # (AUTO) 2.3 K/uL (1.0-5.5); LYMPHOCYTES % (AUTO) 35.8 % (20.5-51.5); MEAN CORPUSCULAR HEMOGLOBIN 32 pg (27-31); MEAN CORPUSCULAR HGB CONC 34 % (32-36); MEAN CORPUSCULAR VOLUME 95 fL (79.0-98.0); MONOCYTES # (AUTO) 0.5 K/uL (0.0-1.0); MONOCYTES % (AUTO) 7.1 % (1.7-9.3); NEUTROPHILS # (AUTO) 3.4 K/uL (1.8-7.7); NEUTROPHILS % (AUTO) 52.2 % (40.0-70.0); PLATELET COUNT (AUTO) 266 K/uL (130-430); RED BLOOD CELL COUNT(AUTO) 4.22 MIL/uL (4.2-6.2); WHITE BLOOD COUNT (AUTO) 6.5 K/uL (4.8-10.8)
[2023-10-15 07:03] LABS: ALANINE AMINOTRANSFERASE 87 U/L (12-78); ALBUMIN 3.4 g/dL (3.4-4.8); ANION GAP 6 (5-15); ASPARTATE AMINOTRANSFERASE 43 U/L (10-37); CALCIUM 9.2 mg/dL (8.4-11.0); CARBON DIOXIDE 28 mmol/L (23-29); CHLORIDE 107 mmol/L (98-107); CREATININE 0.74 mg/dL (0.55-1.30); GLUCOSE 106 mg/dL (74-106); POTASSIUM 4.1 mmol/L (3.5-5.1); SODIUM SERUM 141 mmol/L (136-145); TOTAL BILIRUBIN 0.5 mg/dL (0.0-1.0); UREA NITROGEN, BLOOD 10 mg/dL (8-21)
[2023-10-15 08:13] VITALS: O2SAT 97
[2023-10-15 08:21] VITALS: BP_SYST 133; PULSE 72; RESP 16; TEMP 97.4; O2SAT 97
[2023-10-15 12:00] VITALS: BP_SYST 131; PULSE 74; RESP 17; TEMP 98.2; O2SAT 96
[2023-10-15] MEDS: LEVOTHYROXINE SODIUM 0.075 MG TABLET PO SCH (12:10)
[2023-10-15] MEDS: ATORVASTATIN 20 MG TABLET PO SCH (12:10)
[2023-10-15] MEDS: HYDROCHLOROTHIAZIDE 25 MG TABLET (HCTZ) PO SCH (12:11)
[2023-10-15] MEDS: METOPROLOL SUCCINATE 50 MG TAB.SR.24H (TOPROL XL) PO SCH (12:11)
[2023-10-15] MEDS ORDERED: MECL-292 PO (13:50)
[2023-10-15 14:45] VITALS: BP_SYST 132; PULSE 63; RESP 18; TEMP 98.7; O2SAT 98
[2023-10-15 16:00] VITALS: BP_SYST 134; PULSE 63; RESP 16; TEMP 98.3; O2SAT 97
[2023-10-17 06:07] LABS: HEPATITIS A AB, IgM Negative (Negative); HEPATITIS B CORE AB, IgM Negative (Negative); HEPATITIS B SURFACE AG Negative (Negative); HEPATITIS C VIRUS AB Non Reactive (Non Reactive)
== END 2023-10-15 18:30 | disposition home or self-care (01) ==
LOC: SED 06:16 → STU 10:29
PROVIDERS: ADMIT Family Medicine; ATTEND Family Medicine
DX: R42 Dizziness and giddiness (principal); R11.0 Nausea; E11.65 Type 2 diabetes mellitus with hyperglycemia; E78.5 Hyperlipidemia, unspecified; I10 Essential (primary) hypertension; K21.9 Gastro-esophageal reflux disease without esophagitis; K76.0 Fatty (change of) liver, not elsewhere classified; M79.7 Fibromyalgia; R74.01 Elevation of levels of liver transaminase levels; Z79.899 Other long term (current) drug therapy
CPT/HCPCS: 80076; 80048; 81000; 81001; 82550; 85025 ×2; 85610; 85730; 84484; 36415 ×2; 93005; 71045; 70450; 93880; 97530; 97116; 97163; 99285; 96361; 96374; 82948; 80074; 80053; 83037; 76705; J2765; G0378 ×2; 81015; J8597

== ENCOUNTER 2023-12-31 10:59 | Emergency (ER) | payer OTHER ==
[~2023-12-31] VITALS: Ht 157.5 cm; Wt 68.0 kg
[~2023-12-31 10:59] MED LIST changes: +ATOR40TA68; -CEPH250C PO; +LEVO75TA7 PO; -LEVO88TA5 PO; +MECL-292 PO; +METO-306 PO; -METO25TA6 PO; -OMEP20CA15 PO; -PRED20TA PO; -SIMV-343 PO
[2023-12-31 11:31] VITALS: BP_SYST 129; PULSE 66; RESP 16; TEMP 97.4; O2SAT 96
[2023-12-31] MEDS: MECLIZINE HCL 25 MG TABLET (ANITVERT) PO ONE (11:49)
[2023-12-31] MEDS: NACL 0.9% 1,000 ML IV ONE (12:03)
[2023-12-31 12:19] LABS: BASOPHILS # (AUTO) 0.1 K/uL (0.0-0.2); BASOPHILS % (AUTO) 0.8 % (0.0-2.0); EOSINOPHILS # (AUTO) 0.2 K/uL (0.0-0.4); EOSINOPHILS % (AUTO) 2.5 % (0.0-4.0); HEMATOCRIT 41.5 % (36-48); HEMOGLOBIN 13.6 g/dL (12.0-16.0); LYMPHOCYTES # (AUTO) 1.9 K/uL (1.0-5.5); LYMPHOCYTES % (AUTO) 25.8 % (20.5-51.5); MEAN CORPUSCULAR HEMOGLOBIN 32 pg (27-31); MEAN CORPUSCULAR HGB CONC 33 % (32-36); MEAN CORPUSCULAR VOLUME 97 fL (79.0-98.0); MONOCYTES # (AUTO) 0.5 K/uL (0.0-1.0); MONOCYTES % (AUTO) 6.8 % (1.7-9.3); NEUTROPHILS # (AUTO) 4.7 K/uL (1.8-7.7); NEUTROPHILS % (AUTO) 64.1 % (40.0-70.0); PLATELET COUNT (AUTO) 284 K/uL (130-430); RED CELL DISTRIBUTION WIDTH 14.1 % (9.0-15.0); WHITE BLOOD COUNT (AUTO) 7.3 K/uL (4.8-10.8)
[2023-12-31 12:22] LABS: ANION GAP 7 (5-15); CALCIUM 9.8 mg/dL (8.4-11.0); CARBON DIOXIDE 27 mmol/L (23-29); CHLORIDE 104 mmol/L (98-107); CREATININE 0.76 mg/dL (0.55-1.30); GLUCOSE 147 mg/dL (74-106); POTASSIUM 4.1 mmol/L (3.5-5.1); SODIUM SERUM 138 mmol/L (136-145); UREA NITROGEN, BLOOD 12 mg/dL (8-21)
[2023-12-31] MEDS ORDERED: MECL-225 PO (13:33)
[2023-12-31 13:48] VITALS: BP_SYST 120; PULSE 59; RESP 18; TEMP 97.4; O2SAT 95
== END 2023-12-31 13:50 | disposition home or self-care (01) ==
LOC: SED 10:59
DX: H81.11 Benign paroxysmal vertigo, right ear (principal); E11.9 Type 2 diabetes mellitus without complications; I10 Essential (primary) hypertension; K21.9 Gastro-esophageal reflux disease without esophagitis; M79.7 Fibromyalgia; E78.00 Pure hypercholesterolemia, unspecified; Z79.899 Other long term (current) drug therapy; Z79.2 Long term (current) use of antibiotics
CPT/HCPCS: 99283; 96360; 80048; 85025; 36415; J7030; J8597

== ENCOUNTER 2024-02-18 09:16 | Emergency (ER) | payer OTHER ==
[~2024-02-18] VITALS: Ht 157.5 cm; Wt 68.0 kg
[~2024-02-18 09:16] MED LIST changes: +MECL-225 PO
[2024-02-18 09:30] VITALS: BP_SYST 139; PULSE 77; RESP 16; TEMP 97.6; O2SAT 96
[2024-02-18 10:17] LABS: BASOPHILS % (AUTO) 0.7 % (0.0-2.0); EOSINOPHILS # (AUTO) 0.3 K/uL (0.0-0.4); EOSINOPHILS % (AUTO) 4.4 % (0.0-4.0); HEMATOCRIT 40.3 % (36-48); HEMOGLOBIN 13.3 g/dL (12.0-16.0); LYMPHOCYTES # (AUTO) 1.8 K/uL (1.0-5.5); LYMPHOCYTES % (AUTO) 29.3 % (20.5-51.5); MEAN CORPUSCULAR HEMOGLOBIN 32 pg (27-31); MEAN CORPUSCULAR HGB CONC 33 % (32-36); MEAN CORPUSCULAR VOLUME 96 fL (79.0-98.0); MONOCYTES # (AUTO) 0.4 K/uL (0.0-1.0); MONOCYTES % (AUTO) 6.7 % (1.7-9.3); NEUTROPHILS # (AUTO) 3.7 K/uL (1.8-7.7); NEUTROPHILS % (AUTO) 58.9 % (40.0-70.0); PLATELET COUNT (AUTO) 250 K/uL (130-430); RED BLOOD CELL COUNT(AUTO) 4.22 MIL/uL (4.2-6.2); WHITE BLOOD COUNT (AUTO) 6.3 K/uL (4.8-10.8)
[2024-02-18] MEDS: MECLIZINE HCL 25 MG TABLET (ANITVERT) PO ONE (10:26)
[2024-02-18] MEDS: METOCLOPRAMIDE HCL 10 MG/2 ML VIAL IVP ONE (10:26)
[2024-02-18 10:33] LABS: PROTHROMBIN TIME 10.9 SECS (9.5-12.5)
[2024-02-18 10:36] LABS: ANION GAP 4 (5-15); CALCIUM 9.6 mg/dL (8.4-11.0); CARBON DIOXIDE 31 mmol/L (23-29); CHLORIDE 110 mmol/L (98-107); CREATININE 0.92 mg/dL (0.55-1.30); GLUCOSE 155 mg/dL (74-106); POTASSIUM 3.9 mmol/L (3.5-5.1); SODIUM SERUM 145 mmol/L (136-145); UREA NITROGEN, BLOOD 13 mg/dL (8-21)
[2024-02-18] MEDS ORDERED: MECL-261 PO (11:15)
[2024-02-18 11:35] VITALS: BP_SYST 115; PULSE 66; RESP 16; TEMP 97.6; O2SAT 96
== END 2024-02-18 11:35 | disposition home or self-care (01) ==
LOC: SED 09:16
DX: R42 Dizziness and giddiness (principal); R51.9 Headache, unspecified; R06.02 Shortness of breath; E11.9 Type 2 diabetes mellitus without complications; I10 Essential (primary) hypertension; K21.9 Gastro-esophageal reflux disease without esophagitis; H55.00 Unspecified nystagmus; Z79.899 Other long term (current) drug therapy
CPT/HCPCS: 99285; 96374; 70450; 71045; 80048; 85025; 85610; 85730; 84484; 36415; J2765; J8597